=== PATIENT | male | born 1985 | race American Indian/Alaskan Native ===

== ENCOUNTER 2019-01-16 20:34 | Emergency (ER) | payer MEDICAID ==
[~2019-01-16] VITALS: Ht 182.9 cm; Wt 109.1 kg
[~2019-01-16 20:34] MED LIST: INSULIN; KEPPRA
[2019-01-16] MEDS ORDERED: ALPR0.5T8 PO (20:52)
[2019-01-16 20:59] VITALS: BP 141/63
[2019-01-16 21:07] LABS: BASOPHILS % (AUTO) 0.4 % (0.0-2.0); EOSINOPHILS % (AUTO) 0.5 % (1.0-6.0); HEMATOCRIT 44.7 % (41-53); HEMOGLOBIN 14.6 g/dL (13.5-17.5); LYMPHOCYTES # (AUTO) 1.9 K/uL (1.0-4.8); LYMPHOCYTES % (AUTO) 28.5 % (22.0-44.0); MEAN CORPUSCULAR HEMOGLOBIN 27.8 pg (26.0-34.0); MEAN CORPUSCULAR HGB CONC 32.6 G/dL (31.0-37.0); MEAN CORPUSCULAR VOLUME 85 fL (80-100); MONOCYTES # (AUTO) 0.2 K/uL (0.1-1.0); MONOCYTES % (AUTO) 2.9 % (2.0-9.0); NEUTROPHILS # (AUTO) 4.4 K/uL (1.8-7.7); NEUTROPHILS % (AUTO) 67.7 % (40.0-70.0); PLATELET COUNT (AUTO) 286 K/uL (150-450); RED BLOOD CELL COUNT(AUTO) 5.24 MIL/uL (4.50-5.90); RED CELL DISTRIBUTION WIDTH 15.6 % (11.5-14.5)
[2019-01-16 21:16] LABS: GLUCOSE,POINT OF CARE 170 MG/DL (70-110)
[2019-01-16 21:30] LABS: ALANINE AMINOTRANSFERASE 22 U/L (12-78); ALBUMIN 4.3 g/dL (3.4-5.0); ALKALINE PHOSPHATASE 93 U/L (46-116); ANION GAP 15 mmol/L (8-16); ASPARTATE AMINOTRANSFERASE 23 U/L (15-37); BILIRUBIN,TOTAL 0.3 mg/dL (0.1-1.0); CALCIUM, TOTAL 8.5 mg/dL (8.8-10.5); CARBON DIOXIDE 23 mmol/L (22-29); CHLORIDE 106 mmol/L (98-107); GLOMERULAR FILTR. RATE CALC > 60 mL/min (>60); GLUCOSE,RANDOM 180 mg/dL (70-110); POTASSIUM 3.8 mmol/L (3.5-5.1); SODIUM SERUM 144 mmol/L (136-145); TOTAL PROTEIN, SERUM 7.9 g/dL (6.4-8.2)
[2019-01-16 21:36] LABS: UREA NITROGEN, BLOOD 9 mg/dL (7-18)
== END 2019-01-16 21:56 | disposition left against medical advice (07) ==
LOC: EMS 20:35
DX: S80.02XA Contusion of left knee, initial encounter (principal); E11.65 Type 2 diabetes mellitus with hyperglycemia; F10.129 Alcohol abuse with intoxication, unspecified; F41.9 Anxiety disorder, unspecified; Z79.4 Long term (current) use of insulin; Y90.8 Blood alcohol level of 240 mg/100 ml or more; W19.XXXA Unspecified fall, initial encounter; Y93.89 Activity, other specified; Y92.89 Other specified places as the place of occurrence of the external cause; Y99.8 Other external cause status
CPT/HCPCS: 36415; 73562; 80053; 82962; 84484; 85025; 93005; 99285; G0480

== ENCOUNTER 2019-09-14 23:00 | Emergency (ER) | payer MEDICAID ==
[~2019-09-14] VITALS: Ht 170.2 cm; Wt 100.0 kg
[~2019-09-14 23:00] MED LIST changes: +ALPR0.5T8 PO
[2019-09-15 00:02] LABS: GLUCOSE,POINT OF CARE 563 MG/DL (70-110)
[2019-09-15 00:21] LABS: AMPHET/METH SCREEN,URINE NEGATIVE (NEGATIVE); BARBITURATE SCREEN, URINE NEGATIVE (NEGATIVE); BENZODIAZEPINES SCREEN,URINE POSITIVE (NEGATIVE); CANNABINOID SCREEN,URINE NEGATIVE (NEGATIVE); COCAINE SCREEN,URINE NEGATIVE (NEGATIVE); METHADONE SCREEN, URINE NEGATIVE (NEGATIVE); OPIATE SCREEN,URINE NEGATIVE (NEGATIVE); PHENCYCLIDINE SCREEN,URINE NEGATIVE (NEGATIVE)
[2019-09-15 00:47] LABS: BASOPHILS % (AUTO) 0.4 % (0.0-2.0); EOSINOPHILS % (AUTO) 1.5 % (1.0-6.0); HEMATOCRIT 40.6 % (41-53); HEMOGLOBIN 13.6 g/dL (13.5-17.5); LYMPHOCYTES % (AUTO) 37.7 % (22.0-44.0); MEAN CORPUSCULAR HEMOGLOBIN 30.7 pg (26.0-34.0); MEAN CORPUSCULAR HGB CONC 33.5 G/dL (31.0-37.0); MEAN CORPUSCULAR VOLUME 92 fL (80-100); MONOCYTES # (AUTO) 0.3 K/uL (0.1-1.0); MONOCYTES % (AUTO) 12.5 % (2.0-9.0); NEUTROPHILS # (AUTO) 1.2 K/uL (1.8-7.7); NEUTROPHILS % (AUTO) 47.9 % (40.0-70.0); PLATELET COUNT (AUTO) 123 K/uL (150-450); RED BLOOD CELL COUNT(AUTO) 4.43 MIL/uL (4.50-5.90); RED CELL DISTRIBUTION WIDTH 19.6 % (11.5-14.5)
[2019-09-15 00:57] LABS: ACETONE,BLOOD NEGATIVE (NEGATIVE)
[2019-09-15 01:03] LABS: ALANINE AMINOTRANSFERASE 137 U/L (12-78); ALBUMIN 3.9 g/dL (3.4-5.0); ALKALINE PHOSPHATASE 188 U/L (46-116); ANION GAP 16 mmol/L (8-16); ASPARTATE AMINOTRANSFERASE 133 U/L (15-37); BILIRUBIN,TOTAL 0.3 mg/dL (0.1-1.0); CARBON DIOXIDE 25 mmol/L (22-29); CHLORIDE 96 mmol/L (98-107); CREATININE 1.07 mg/dL (0.60-1.30); GLOMERULAR FILTR. RATE CALC > 60 mL/min (>60); POTASSIUM 4.4 mmol/L (3.5-5.1); SODIUM SERUM 137 mmol/L (136-145); TOTAL PROTEIN, SERUM 7.8 g/dL (6.4-8.2); UREA NITROGEN, BLOOD 13 mg/dL (7-18)
[2019-09-15 01:07] LABS: GLUCOSE,RANDOM 542 mg/dL (70-110)
[2019-09-15 01:08] LABS: CALCIUM, TOTAL 8.6 mg/dL (8.8-10.5)
[2019-09-15] MEDS ORDERED: INSULIN REGULAR, HUMAN 100 UNITS/ML SQ ONE ×2 (01:30→03:45)
[2019-09-15] MEDS ORDERED: MAGNESIUM SULFATE 2 GM, MVI, ADULT NO.1 WITH VIT K 10 ML, THIAMINE 100 MG, FOLIC ACID 1... IV ONE ×5 (01:30)
[2019-09-15] MEDS ORDERED: PHENYTOIN 100 MG/4 ML SUSPENSION UDCUP PO ONE (03:30)
[2019-09-15 03:37] LABS: GLUCOSE,POINT OF CARE 412 MG/DL (70-110)
[2019-09-15 04:13] LABS: PHENYTOIN (DILANTIN) 1.3 mcg/mL (10.0-20.0)
[2019-09-15 04:56] LABS: GLUCOSE,POINT OF CARE 343 MG/DL (70-110)
[2019-09-15 06:00] VITALS: BP 129/70
== END 2019-09-15 06:09 | disposition home or self-care (01) ==
LOC: EMS 23:02
DX: F10.129 Alcohol abuse with intoxication, unspecified (principal); E11.65 Type 2 diabetes mellitus with hyperglycemia; F41.9 Anxiety disorder, unspecified; Z59.0 Homelessness; Y90.8 Blood alcohol level of 240 mg/100 ml or more
CPT/HCPCS: 36415; 70450; 80053; 80185; 80307; 81001; 82009; 82962; 85025; 96365; 96366; 96372; 99285; G0480; J1815; J3411; J3475; J3490 ×2; J7030

== ENCOUNTER 2020-09-09 06:14 | Inpatient (IN) | payer MEDICAID ==
[~2020-09-09] VITALS: Ht 182.9 cm; Wt 99.5 kg
[2020-09-10 18:30] VITALS: BP 126/80
[2020-09-10] MEDS ORDERED: HALOPERIDOL 5 MG TABLET PO PRN (19:30)
[2020-09-10] MEDS ORDERED: DEXTROSE 50%-WATER 25 GM/50 ML SYRINGE IVP PRN (19:45)
[2020-09-10] MEDS ORDERED: OMEPRAZOLE 20 MG CAPSULE PO PRN (19:45)
[2020-09-10] MEDS: GABAPENTIN 300 MG CAPSULE PO SCH (21:21)
[2020-09-10] MEDS: LevETIRAcetam 500 MG TABLET PO SCH (21:21)
[2020-09-10 21:24] LABS: APPEARANCE,URINE CLEAR (CLEAR); BILIRUBIN,URINE NEGATIVE (NEGATIVE); GLUCOSE, URINE (UA) >=1000 mg/dL (NEGATIVE); KETONES,URINE NEGATIVE (NEGATIVE); LEUKOCYTE ESTERASE ,URINE NEGATIVE (NEGATIVE); NITRATE,URINE NEGATIVE (NEGATIVE); OCCULT BLOOD,URINE TRACE (NEGATIVE); PROTEIN,URINE NEGATIVE (NEGATIVE)
[2020-09-10 21:29] VITALS: BP 132/70
[2020-09-10 21:30] LABS: AMPHET/METH SCREEN,URINE NEGATIVE (NEGATIVE); BARBITURATE SCREEN, URINE NEGATIVE (NEGATIVE); BENZODIAZEPINES SCREEN,URINE POSITIVE (NEGATIVE); CANNABINOID SCREEN,URINE NEGATIVE (NEGATIVE); COCAINE SCREEN,URINE NEGATIVE (NEGATIVE); METHADONE SCREEN, URINE NEGATIVE (NEGATIVE); OPIATE SCREEN,URINE NEGATIVE (NEGATIVE)
[2020-09-10] MEDS: ZOLPIDEM TARTRATE 10 MG TABLET PO PRN (21:30)
[2020-09-10] MEDS: TraMADol HCL 50 MG TABLET PO PRN (21:30)
[2020-09-10 21:33] LABS: PHENCYCLIDINE SCREEN,URINE NEGATIVE (NEGATIVE)
[2020-09-10 21:35] LABS: BACTERIA,URINE None Seen /HPF (None Seen); RBC,URINE None Seen /HPF (0-2); SQUAMOUS EPITHELIAL CELL,UR None Seen /LPF (None Seen); WBC,URINE None Seen /HPF (0-5)
[2020-09-10] MEDS: INSULIN LISPRO 100 UNITS/ML SQ PRN (21:37)
[2020-09-10 21:41] LABS: GLUCOMETER DEV NAME(LOC) 3E.I 2; GLUCOSE,POINT OF CARE 293 MG/DL (70-110)
[2020-09-10] MEDS: NYSTATIN 15 GM POWDER BOTTLE TP SCH (22:26)
[2020-09-10] MEDS ORDERED: PNEUMOCOCCAL VACCINE POLYVALENT 0.5 ML VIAL [PPSV23] IM. ONE (23:15)
[2020-09-11 00:56] VITALS: BP 117/76
[2020-09-11 05:39] LABS: GLUCOMETER DEV NAME(LOC) 3E.I 2; GLUCOSE,POINT OF CARE 310 MG/DL (70-110)
[2020-09-11] MEDS: INSULIN LISPRO 100 UNITS/ML SQ PRN ×4 (06:49→21:51)
[2020-09-11 07:15] LABS: BASOPHILS % (AUTO) 0.6 % (0.0-2.0); EOSINOPHILS % (AUTO) 2.1 % (1.0-6.0); HEMATOCRIT 36.4 % (41-53); HEMOGLOBIN 11.9 g/dL (13.5-17.5); LYMPHOCYTES # (AUTO) 1.4 K/uL (1.0-4.8); LYMPHOCYTES % (AUTO) 35.3 % (22.0-44.0); MEAN CORPUSCULAR HEMOGLOBIN 30.4 pg (26.0-34.0); MEAN CORPUSCULAR HGB CONC 32.7 G/dL (31.0-37.0); MEAN CORPUSCULAR VOLUME 93 fL (80-100); MONOCYTES # (AUTO) 0.6 K/uL (0.1-1.0); MONOCYTES % (AUTO) 13.8 % (2.0-9.0); NEUTROPHILS # (AUTO) 1.9 K/uL (1.8-7.7); NEUTROPHILS % (AUTO) 48.2 % (40.0-70.0); PLATELET COUNT (AUTO) 156 K/uL (150-450); RED BLOOD CELL COUNT(AUTO) 3.91 MIL/uL (4.50-5.90); RED CELL DISTRIBUTION WIDTH 17.6 % (11.5-14.5)
[2020-09-11] MEDS ORDERED: MAGNESIUM HYDROXIDE SUSPENSION 30 ML UDCUP PO PRN (07:45)
[2020-09-11] MEDS ORDERED: DOCUSATE SODIUM 100 MG CAPSULE PO PRN (07:45)
[2020-09-11] MEDS ORDERED: ACETAMINOPHEN 325 MG TABLET PO PRN (07:45)
[2020-09-11] MEDS ORDERED: MAG HYDROX/AL HYDROX/SIMETH ES 30 ML SUSPENSION UDCUP PO PRN (07:45)
[2020-09-11] MEDS ORDERED: ALBUTEROL SULFATE HFA 90 MCG/PUFF 8 GM INHALER IH PRN (07:45)
[2020-09-11] MEDS ORDERED: PETROLATUM,WHITE 28 GM JELLY TP PRN (07:45)
[2020-09-11] MEDS ORDERED: NICOTINE 14 MG/24 HOUR PATCH TD PRN (07:45)
[2020-09-11] MEDS ORDERED: GuaiFENesin/D-METHORPHAN [SUGAR-FREE] 200-20MG/10 ML SYRUP UDCUP PO PRN (07:45)
[2020-09-11] MEDS ORDERED: ONDANSETRON HCL 4 MG TABLET PO PRN (07:45)
[2020-09-11] MEDS ORDERED: CloNIDine HCL 0.1 MG TABLET PO PRN (07:45)
[2020-09-11] MEDS ORDERED: LOPERAMIDE HCL 2 MG CAPSULE PO PRN (07:45)
[2020-09-11 08:00] LABS: ALANINE AMINOTRANSFERASE 100 U/L (12-78); ALBUMIN 3.4 g/dL (3.4-5.0); ALKALINE PHOSPHATASE 251 U/L (46-116); ANION GAP 10 mmol/L (8-16); ASPARTATE AMINOTRANSFERASE 134 U/L (15-37); BILIRUBIN,TOTAL 0.6 mg/dL (0.1-1.0); CALCIUM, TOTAL 9.9 mg/dL (8.8-10.5); CARBON DIOXIDE 27 mmol/L (22-29); CHLORIDE 97 mmol/L (98-107); CHOL/HDL RATIO 4.8 (4.2-7.3); CHOLESTEROL 296 mg/dL (131-200); CREATININE 0.72 mg/dL (0.60-1.30); FREE T4 (FREE THYROXINE) 1.05 ng/dL (0.76-1.46); GLOMERULAR FILTR. RATE CALC > 60 mL/min (>60); GLUCOSE,RANDOM 301 mg/dL (70-110); HDL CHOLESTEROL 62 mg/dL (40-60); LDL CHOL (CALC.) 205 mg/dL (0-130); POTASSIUM 4.2 mmol/L (3.5-5.1); SODIUM SERUM 134 mmol/L (136-145); THYROID STIMULATING HORMONE 2.88 uIU/mL (0.36-3.74); TOTAL PROTEIN, SERUM 7.9 g/dL (6.4-8.2); TRIGLYCERIDES 146 mg/dL (15-150); UREA NITROGEN, BLOOD 9 mg/dL (7-18)
[2020-09-11 08:31] VITALS: BP 121/89
[2020-09-11] MEDS: NYSTATIN 15 GM POWDER BOTTLE TP SCH ×2 (09:02→16:43)
[2020-09-11] MEDS: GABAPENTIN 300 MG CAPSULE PO SCH ×3 (09:02→16:43)
[2020-09-11] MEDS: MetFORMIN HCL 500 MG TABLET PO SCH ×2 (09:02→16:43)
[2020-09-11] MEDS: LevETIRAcetam 500 MG TABLET PO SCH ×2 (09:02→16:43)
[2020-09-11] MEDS: TraMADol HCL 50 MG TABLET PO PRN ×2 (09:57→21:46)
[2020-09-11 11:26] LABS: GLUCOMETER DEV NAME(LOC) 3E.I 2; GLUCOSE,POINT OF CARE 299 MG/DL (70-110)
[2020-09-11] MEDS: BusPIRone HCL 5 MG TABLET PO SCH ×3 (12:15→20:58)
[2020-09-11] MEDS: SERTRALINE HCL 50 MG TABLET PO SCH (12:15)
[2020-09-11 16:34] VITALS: BP 115/77
[2020-09-11 17:10] LABS: GLUCOMETER DEV NAME(LOC) 3E.I 2; GLUCOSE,POINT OF CARE 290 MG/DL (70-110)
[2020-09-11] MEDS: ZOLPIDEM TARTRATE 10 MG TABLET PO PRN (21:05)
[2020-09-11 21:35] LABS: GLUCOMETER DEV NAME(LOC) 3E.I 2; GLUCOSE,POINT OF CARE 374 MG/DL (70-110)
[2020-09-11 21:46] VITALS: BP 135/74
[2020-09-11 22:46] VITALS: BP 128/80
[2020-09-12] MEDS: LORazepam 2 MG TABLET PO PRN (02:23)
[2020-09-12 02:26] VITALS: BP 127/79
[2020-09-12 05:32] LABS: GLUCOMETER DEV NAME(LOC) 3E.I 2; GLUCOSE,POINT OF CARE 326 MG/DL (70-110)
[2020-09-12] MEDS: GlipiZIDE 5 MG TABLET PO SCH (06:57)
[2020-09-12] MEDS: MetFORMIN HCL 500 MG TABLET PO SCH ×2 (06:57→16:53)
[2020-09-12] MEDS: INSULIN LISPRO 100 UNITS/ML SQ PRN ×4 (06:58→20:08)
[2020-09-12 08:23] VITALS: BP 115/75
[2020-09-12] MEDS: BusPIRone HCL 5 MG TABLET PO SCH ×3 (08:25→20:05)
[2020-09-12] MEDS: SERTRALINE HCL 50 MG TABLET PO SCH (08:25)
[2020-09-12] MEDS: MULTIVITAMINS WITH MINERALS, THERAPEUTIC TABLET PO SCH (08:25)
[2020-09-12] MEDS: GABAPENTIN 300 MG CAPSULE PO SCH ×3 (08:25→16:52)
[2020-09-12] MEDS: NYSTATIN 15 GM POWDER BOTTLE TP SCH ×2 (08:25→17:23)
[2020-09-12] MEDS: LevETIRAcetam 500 MG TABLET PO SCH ×2 (08:25→16:53)
[2020-09-12 11:35] LABS: GLUCOMETER DEV NAME(LOC) 3E.I 2; GLUCOSE,POINT OF CARE 307 MG/DL (70-110)
[2020-09-12 17:34] LABS: GLUCOMETER DEV NAME(LOC) 3E.I 2; GLUCOSE,POINT OF CARE 263 MG/DL (70-110)
[2020-09-12 19:05] VITALS: BP 105/67
[2020-09-12] MEDS: ZOLPIDEM TARTRATE 10 MG TABLET PO PRN (20:06)
[2020-09-12 20:16] LABS: GLUCOMETER DEV NAME(LOC) 3E.I 2; GLUCOSE,POINT OF CARE 365 MG/DL (70-110)
[2020-09-13 05:20] VITALS: BP 111/72
[2020-09-13] MEDS: LORazepam 2 MG TABLET PO PRN (05:31)
[2020-09-13] MEDS: TraMADol HCL 50 MG TABLET PO PRN (05:31)
[2020-09-13 06:04] LABS: GLUCOMETER DEV NAME(LOC) 3E.I 2; GLUCOSE,POINT OF CARE 296 MG/DL (70-110)
[2020-09-13] MEDS: GlipiZIDE 5 MG TABLET PO SCH (06:54)
[2020-09-13] MEDS: MetFORMIN HCL 500 MG TABLET PO SCH (06:55)
[2020-09-13] MEDS: INSULIN LISPRO 100 UNITS/ML SQ PRN ×2 (06:56→11:33)
[2020-09-13] MEDS: GABAPENTIN 300 MG CAPSULE PO SCH ×2 (07:59→11:51)
[2020-09-13] MEDS: SERTRALINE HCL 50 MG TABLET PO SCH (07:59)
[2020-09-13] MEDS: BusPIRone HCL 5 MG TABLET PO SCH (07:59)
[2020-09-13] MEDS: NYSTATIN 15 GM POWDER BOTTLE TP SCH ×2 (07:59→08:59)
[2020-09-13] MEDS: MULTIVITAMINS WITH MINERALS, THERAPEUTIC TABLET PO SCH (07:59)
[2020-09-13] MEDS: LevETIRAcetam 500 MG TABLET PO SCH (07:59)
[2020-09-13 08:07] VITALS: BP 120/78
[2020-09-13] MEDS ORDERED: SERT-439 PO (10:03)
[2020-09-13 11:31] LABS: GLUCOMETER DEV NAME(LOC) 3E.I 2; GLUCOSE,POINT OF CARE 240 MG/DL (70-110)
[2020-09-13] MEDS ORDERED: GLIP5 PO (14:25)
[2020-09-13] MEDS ORDERED: GABA-1181 PO (14:25)
[2020-09-13] MEDS ORDERED: LEVE500T8 PO (14:27)
[2020-09-13] MEDS ORDERED: METF-960 PO (14:28)
[2020-09-13] MEDS ORDERED: MULT-1239 PO (14:28)
[2020-09-13] MEDS ORDERED: BUSP5TAB20 PO (14:55)
[2020-09-13 16:00] VITALS: BP 105/68
== END 2020-09-13 17:30 | disposition home or self-care (01) | DRG 751 ==
LOC: 3EI 09-10 18:30
DX: F33.3 Major depressive disorder, recurrent, severe with psychotic symptoms (principal); R45.851 Suicidal ideations; K86.1 Other chronic pancreatitis; E11.9 Type 2 diabetes mellitus without complications; G40.909 Epilepsy, unspecified, not intractable, without status epilepticus; D72.819 Decreased white blood cell count, unspecified; F10.20 Alcohol dependence, uncomplicated; Z79.899 Other long term (current) drug therapy
CPT/HCPCS: 80053; 80061; 80307; 81001; 82962; 84436; 84439; 84443; 85025; 87081